=== PATIENT | male | born 2000 | race Two or more races ===

== ENCOUNTER 2024-03-07 22:39 | Emergency (ER) | payer MEDICAID ==
[~2024-03-07] VITALS: Ht 170.2 cm; Wt 94.1 kg
[2024-03-07 23:02] VITALS: TEMP 98.4
[2024-03-07] MEDS: GuaiFENesin/D-METHORPHAN [SUGAR-FREE] 200-20MG/10 ML SYRUP UDCUP PO ONE (23:45)
[2024-03-07] MEDS: ACETAMINOPHEN 500 MG TABLET PO ONE (23:45)
[2024-03-07] MEDS: IBUPROFEN 600 MG TABLET PO ONE (23:45)
[2024-03-08] MEDS ORDERED: IBUP-1554 PO (00:05)
[2024-03-08] MEDS ORDERED: ACET-66 PO (00:05)
[2024-03-08] MEDS ORDERED: GUAIFDM PO (00:05)
[2024-03-08 00:51] VITALS: BP 138/77; PULSE 65; RESP 16
== END 2024-03-08 00:53 | disposition home or self-care (01) ==
LOC: EMS 22:53
DX: S29.011A Strain of muscle and tendon of front wall of thorax, initial encounter (principal); G43.909 Migraine, unspecified, not intractable, without status migrainosus; X58.XXXA Exposure to other specified factors, initial encounter; Y93.89 Activity, other specified; Y92.89 Other specified places as the place of occurrence of the external cause; Y99.8 Other external cause status
CPT/HCPCS: 71045; 93005; 99284